=== PATIENT | female | born 1995 | race African-American/Black ===

== ENCOUNTER 2018-02-25 14:45 | Inpatient (IN) ==
[2018-02-25] MEDS ORDERED: SODIUM CHLORIDE 0.9% 1,000 ML IV STA (15:10)
[2018-02-25] MEDS ORDERED: PHENYTOIN INJ 1,000 MG in SODIUM CHLORIDE 0.9% 100 ML IV STA (15:10)
[2018-02-25] MEDS ORDERED: PANTOPRAZOLE 40 MG VIAL IV STA (15:12)
[2018-02-25] MEDS ORDERED: ONDANSETRON 4 MG/2 ML VIAL IV STA ×2 (15:12→18:22)
[2018-02-25] MEDS ORDERED: FOSPHENYTOIN 1,000 MG.PE in SODIUM CHLORIDE 0.9% 250 ML IV STA (15:28)
[2018-02-25] MEDS ORDERED: FOSPHENYTOIN 500 MG.PE/10 ML VIAL ONE ×2 (15:31→15:35)
[2018-02-25 16:51] LABS: Basophils % 0.3 % (0.0-0.8); Hematocrit 38.2 VOL% (35.7-47.0); Hemoglobin 13.1 GM/DL (12.0-16.0); Immature Granulocytes % 0.7 %; Immature Granulocytes Absolute 0.05 #; Lymphocytes # 0.5 10*3/uL (1.4-4.0); Lymphocytes % 6.6 % (21.3-54.2); Mean Corpuscular HGB Conc 34.3 GM/DL (32-36); Mean Corpuscular Hemoglobin 33 PG (27-34); Mean Corpuscular Volume 96.7 FL (87-102); Mean Platelet Volume 10.9 FL (9.6-12.0); Monocytes # 0.2 10*3/uL (0.11-0.8); Monocytes % 2.1 % (1.7-12.7); Neutrophils # 6.9 10*3/uL (1.4-7.4); Neutrophils % 90.3 % (38.7-73.9); Platelet Count 212 T/CUMM (130-400); Red Blood Count 3.95 MC/CUMM (3.8-5.5); Red Cell Distribution Width 12.5 % (9.3-17.3); White Blood Count 7.6 T/CUMM (4-12)
[2018-02-25 17:05] LABS: Barbiturates Screen,Urine Negative (Negative); Benzodiazepines Screen,Urine Negative (Negative); Cannabinoid Screen,Urine Positive (Negative); Opiate Screen,Urine Negative (Negative); Phencyclidine Screen,Urine Negative (Negative)
[2018-02-25] MEDS ORDERED: PROMETHAZINE 25 MG/1 ML VIAL IM STA (17:13)
[2018-02-25 17:15] LABS: Blood Urea Nitrogen 11 MG/DL (7-18); Calcium 8.7 MG/DL (8.5-10.1); Glucose 108 MG/DL (74-106); Osmolality,Calculated 285.8 MOS/KG (273-304); Potassium 3.8 MMOL/L (3.5-5.1); Sodium 144 MMOL/L (136-145)
[2018-02-25 17:59] LABS: Apearance,Urine CLEAR (Clear); Bacteria,Urine Occasional /HPF (Few); Bilirubin,Urine Negative (Negative); Blood, Urine Negative (Negative); Glucose,Urine (UA) Negative (Negative); Hyaline Casts,Urine 1 /LPF (0-3); Ketones,Urine 20 mg/dL (Negative); Mucus,Urine Occasional /LPF (Occasional); Nitrite,Urine Negative (Negative); Protein,Urine Negative; RBC,Urine 11 /HPF (0-4); Urine Color Yellow (Yellow); Urine Specific Gravity 1.015 (1.001-1.035); Urine Urobilinogen < 2.0 EU/DL (0.2-1.0); WBC,Urine 3 /HPF (0-6)
[2018-02-25] MEDS ORDERED: ALUM/MAG/SIMETH/LIDO VISC 1:1 30 ML BOTTLE PO STA (18:22)
[2018-02-25] MEDS ORDERED: cefTRIAXone 1,000 MG in SODIUM CHLORIDE 0.9% 100 ML IV STA (20:11)
[2018-02-25] MEDS ORDERED: SODIUM CHLORIDE 0.9% 1,000 ML IV ONE (20:29)
[2018-02-25] MEDS ORDERED: PHENYTOIN 100 MG/2 ML VIAL IV SCH (22:00)
[2018-02-25] MEDS: MORPHINE 4 MG/1 ML VIAL IV PRN (23:00)
[2018-02-25] MEDS: ONDANSETRON 4 MG/2 ML VIAL IV PRN (23:01)
[2018-02-25] MEDS: ENOXAPARIN 40 MG/0.4 ML SYRINGE SUBCUT SCH (23:02)
[2018-02-26] MEDS: DEXT 5% NACL 0.45% KCL 20 MEQ 20 MEQ/1,000 ML BAG IV SCH ×4 (01:40→22:10)
[2018-02-26] MEDS: ONDANSETRON 4 MG/2 ML VIAL IV PRN ×3 (04:22→23:04)
[2018-02-26 05:33] LABS: Basophils % 0.1 % (0.0-0.8); Hematocrit 33.7 VOL% (35.7-47.0); Hemoglobin 12.1 GM/DL (12.0-16.0); Immature Granulocytes % 0.5 %; Immature Granulocytes Absolute 0.05 #; Lymphocytes # 1.4 10*3/uL (1.4-4.0); Lymphocytes % 12.5 % (21.3-54.2); Mean Corpuscular HGB Conc 35.9 GM/DL (32-36); Mean Corpuscular Hemoglobin 33 PG (27-34); Mean Corpuscular Volume 92.8 FL (87-102); Mean Platelet Volume 11.8 FL (9.6-12.0); Monocytes # 0.4 10*3/uL (0.11-0.8); Monocytes % 3.4 % (1.7-12.7); Neutrophils # 9.1 10*3/uL (1.4-7.4); Neutrophils % 83.5 % (38.7-73.9); Platelet Count 205 T/CUMM (130-400); Red Blood Count 3.63 MC/CUMM (3.8-5.5); Red Cell Distribution Width 12.7 % (9.3-17.3); White Blood Count 10.9 T/CUMM (4-12)
[2018-02-26 06:07] LABS: Calcium 8.5 MG/DL (8.5-10.1); Osmolality,Calculated 284.1 MOS/KG (273-304); Potassium 3.7 MMOL/L (3.5-5.1)
[2018-02-26] MEDS: MORPHINE 4 MG/1 ML VIAL IV PRN ×4 (08:25→23:02)
[2018-02-26] MEDS: PHENYTOIN 100 MG/2 ML VIAL IV SCH ×2 (10:20→18:01)
[2018-02-26] MEDS: PANTOPRAZOLE 40 MG VIAL IV SCH (10:44)
[2018-02-26] MEDS: ENOXAPARIN 40 MG/0.4 ML SYRINGE SUBCUT SCH (21:02)
[2018-02-27] MEDS: PHENYTOIN 100 MG/2 ML VIAL IV SCH ×2 (01:10→09:40)
[2018-02-27] MEDS: MORPHINE 4 MG/1 ML VIAL IV PRN ×4 (05:12→20:41)
[2018-02-27] MEDS: ONDANSETRON 4 MG/2 ML VIAL IV PRN ×4 (05:15→20:44)
[2018-02-27] MEDS: DEXT 5% NACL 0.45% KCL 20 MEQ 20 MEQ/1,000 ML BAG IV SCH ×3 (05:17→14:00)
[2018-02-27] MEDS: PANTOPRAZOLE 40 MG VIAL IV SCH ×2 (08:39→20:38)
[2018-02-27] MEDS: PHENYTOIN 100 MG/4 ML UDCUP PO SCH ×3 (11:06→20:40)
[2018-02-28] MEDS: MORPHINE 4 MG/1 ML VIAL IV PRN ×2 (02:53→09:10)
[2018-02-28] MEDS: DEXT 5% NACL 0.45% KCL 20 MEQ 20 MEQ/1,000 ML BAG IV SCH ×3 (02:55→18:39)
[2018-02-28] MEDS: ONDANSETRON 4 MG/2 ML VIAL IV PRN (02:55)
[2018-02-28 03:06] LABS: Basophils % 0.6 % (0.0-0.8); Eosinophils # 0.1 10*3/uL (0.0-0.87); Eosinophils % 1.8 % (0.00-10.9); Hematocrit 34.4 VOL% (35.7-47.0); Hemoglobin 11.7 GM/DL (12.0-16.0); Immature Granulocytes % 0.2 %; Immature Granulocytes Absolute 0.01 #; Lymphocytes # 2.3 10*3/uL (1.4-4.0); Lymphocytes % 47.3 % (21.3-54.2); Mean Corpuscular Hemoglobin 33 PG (27-34); Mean Corpuscular Volume 95.6 FL (87-102); Mean Platelet Volume 11.3 FL (9.6-12.0); Monocytes # 0.4 10*3/uL (0.11-0.8); Monocytes % 7.3 % (1.7-12.7); Neutrophils # 2.1 10*3/uL (1.4-7.4); Neutrophils % 42.8 % (38.7-73.9); Platelet Count 182 T/CUMM (130-400); Red Cell Distribution Width 12.1 % (9.3-17.3); White Blood Count 4.9 T/CUMM (4-12)
[2018-02-28 03:37] LABS: Calcium 8.1 MG/DL (8.5-10.1); Osmolality,Calculated 275.4 MOS/KG (273-304)
[2018-02-28] MEDS: PHENYTOIN 100 MG/4 ML UDCUP PO SCH ×3 (08:53→21:22)
[2018-02-28] MEDS: PANTOPRAZOLE 40 MG VIAL IV SCH ×2 (08:54→21:22)
[2018-02-28] MEDS ORDERED: PROPOFOL 200 MG/20 ML VIAL IV ONE (11:22)
[2018-02-28] MEDS ORDERED: LIDOCAINE 1% 5 ML VIAL ONE (11:22)
[2018-02-28] MEDS: METOCLOPRAMIDE 10 MG/10 ML UDCUP PO SCH ×3 (12:20→21:22)
[2018-03-01] MEDS: DEXT 5% NACL 0.45% KCL 20 MEQ 20 MEQ/1,000 ML BAG IV SCH ×3 (02:40→14:04)
[2018-03-01] MEDS: MORPHINE 4 MG/1 ML VIAL IV PRN ×4 (02:47→22:31)
[2018-03-01 05:34] LABS: Basophils % 0.7 % (0.0-0.8); Eosinophils # 0.1 10*3/uL (0.0-0.87); Eosinophils % 2.7 % (0.00-10.9); Hematocrit 36.5 VOL% (35.7-47.0); Hemoglobin 12.8 GM/DL (12.0-16.0); Immature Granulocytes % 0.2 %; Immature Granulocytes Absolute 0.01 #; Lymphocytes # 1.8 10*3/uL (1.4-4.0); Lymphocytes % 41.2 % (21.3-54.2); Mean Corpuscular HGB Conc 35.1 GM/DL (32-36); Mean Corpuscular Hemoglobin 33 PG (27-34); Mean Corpuscular Volume 94.8 FL (87-102); Mean Platelet Volume 11.1 FL (9.6-12.0); Monocytes # 0.3 10*3/uL (0.11-0.8); Monocytes % 6.6 % (1.7-12.7); Neutrophils # 2.1 10*3/uL (1.4-7.4); Neutrophils % 48.6 % (38.7-73.9); Platelet Count 189 T/CUMM (130-400); Red Blood Count 3.85 MC/CUMM (3.8-5.5); Red Cell Distribution Width 11.9 % (9.3-17.3); White Blood Count 4.4 T/CUMM (4-12)
[2018-03-01 06:01] LABS: Calcium 8.5 MG/DL (8.5-10.1); Osmolality,Calculated 272.7 MOS/KG (273-304); Potassium 4.3 MMOL/L (3.5-5.1)
[2018-03-01] MEDS: METOCLOPRAMIDE 10 MG/10 ML UDCUP PO SCH ×4 (10:20→21:42)
[2018-03-01] MEDS: PANTOPRAZOLE 40 MG VIAL IV SCH ×2 (11:00→21:42)
[2018-03-01] MEDS: PHENYTOIN 100 MG/4 ML UDCUP PO SCH ×3 (11:00→21:42)
[2018-03-02] MEDS: MORPHINE 4 MG/1 ML VIAL IV PRN (06:53)
[2018-03-02] MEDS: PANTOPRAZOLE 40 MG VIAL IV SCH (09:28)
[2018-03-02] MEDS: METOCLOPRAMIDE 10 MG/10 ML UDCUP PO SCH (09:28)
[2018-03-02] MEDS: PHENYTOIN 100 MG/4 ML UDCUP PO SCH (09:29)
[2018-03-02 11:31] VITALS: BP 118/67
== END 2018-03-02 11:46 | disposition home or self-care (01) | DRG 391 ==
LOC: N.ED 14:45 → N.EDINP 14:45 → N.3E 21:50
PROVIDERS: ADMIT Internal Medicine; ATTEND Internal Medicine

== ENCOUNTER 2018-08-01 10:10 | Inpatient (IN) ==
[2018-08-01] MEDS ORDERED: ONDANSETRON 4 MG/2 ML VIAL IV STA (10:43)
[2018-08-01] MEDS ORDERED: SODIUM CHLORIDE 0.9% 1,000 ML IV STA ×2 (10:43→11:36)
[2018-08-01] MEDS ORDERED: PANTOPRAZOLE 40 MG VIAL IV STA (10:43)
[2018-08-01 12:05] LABS: Basophils % 0.3 % (0.0-0.8); Hematocrit 43.4 VOL% (35.7-47.0); Hemoglobin 14.8 GM/DL (12.0-16.0); Immature Granulocytes % 0.4 %; Immature Granulocytes Absolute 0.03 #; Lymphocytes # 0.9 10*3/uL (1.4-4.0); Lymphocytes % 13.5 % (21.3-54.2); Mean Corpuscular HGB Conc 34.1 GM/DL (32-36); Mean Corpuscular Hemoglobin 33 PG (27-34); Mean Corpuscular Volume 95.4 FL (87-102); Monocytes # 0.3 10*3/uL (0.11-0.8); Monocytes % 3.7 % (1.7-12.7); Neutrophils # 5.6 10*3/uL (1.4-7.4); Neutrophils % 82.1 % (38.7-73.9); Platelet Count 202 T/CUMM (130-400); Red Blood Count 4.55 MC/CUMM (3.8-5.5); Red Cell Distribution Width 12.4 % (9.3-17.3); White Blood Count 6.8 T/CUMM (4-12)
[2018-08-01 12:24] LABS: Albumin 4.2 G/DL (3.4-5.0); Bilirubin,Total 0.7 MG/DL (0.2-1.0); Calcium 8.8 MG/DL (8.5-10.1); Lactic Acid 1.4 MMOL/L (0.4-2.0); Osmolality,Calculated 280.4 MOS/KG (273-304); Potassium 3.2 MMOL/L (3.5-5.1); Total Protein 8.1 G/DL (6.4-8.3)
[2018-08-01] MEDS ORDERED: ACETAMINOPHEN 325 MG TABLET PO PRN (14:29)
[2018-08-01 14:30] LABS: Amorphous Crystals,Urine Occasional /HPF (Few); Apearance,Urine CLOUDY (Clear); Bilirubin,Urine Negative (Negative); Blood, Urine Negative (Negative); Glucose,Urine (UA) Negative (Negative); Ketones,Urine 20 mg/dL (Negative); Mucus,Urine Few /LPF (Occasional); Nitrite,Urine Negative (Negative); Protein,Urine Negative; RBC,Urine 3 /HPF (0-4); Squamous Epithelial Cell,Urine Occasional /HPF (0-10); Urine Color Yellow (Yellow); Urine Specific Gravity 1.017 (1.001-1.035); WBC,Urine 4 /HPF (0-6)
[2018-08-01 14:59] LABS: Barbiturates Screen,Urine Negative (Negative); Benzodiazepines Screen,Urine Positive (Negative); Cannabinoid Screen,Urine Positive (Negative); Opiate Screen,Urine Positive (Negative); Phencyclidine Screen,Urine Negative (Negative)
[2018-08-01] MEDS ORDERED: MORPHINE 4 MG/1 ML VIAL IV PRN (16:22)
[2018-08-01] MEDS ORDERED: PROMETHAZINE INJ 25 MG in SODIUM CHLORIDE 0.9% 50 ML IV PRN (16:22)
[2018-08-01] MEDS ORDERED: INFLUENZA VIRUS VACCINE 0.5 ML SYRINGE IM ONE (16:30)
[2018-08-01] MEDS: SODIUM CHLORIDE 0.9% 1,000 ML IV SCH (16:31)
[2018-08-01] MEDS: ONDANSETRON 4 MG/2 ML VIAL IV PRN ×2 (16:31→20:13)
[2018-08-01] MEDS: KETOROLAC 15 MG/1 ML VIAL IV PRN ×2 (16:41→22:23)
[2018-08-01] MEDS: PHENYTOIN ER 100 MG CAPSULE PO SCH (20:12)
[2018-08-01] MEDS: PANTOPRAZOLE 40 MG VIAL IV SCH (20:15)
[2018-08-01] MEDS: PROMETHAZINE INJ 12.5 MG in SODIUM CHLORIDE 0.9% 50 ML IV PRN (22:25)
[2018-08-02] MEDS: SODIUM CHLORIDE 0.9% 1,000 ML IV SCH ×2 (01:06→08:30)
[2018-08-02] MEDS: ONDANSETRON 4 MG/2 ML VIAL IV PRN ×2 (01:13→16:25)
[2018-08-02 03:12] LABS: Basophils % 0.2 % (0.0-0.8); Eosinophils % 0.2 % (0.00-10.9); Hematocrit 38.1 VOL% (35.7-47.0); Immature Granulocytes % 0.3 %; Immature Granulocytes Absolute 0.03 #; Lymphocytes # 2.1 10*3/uL (1.4-4.0); Mean Corpuscular HGB Conc 34.1 GM/DL (32-36); Mean Corpuscular Hemoglobin 32 PG (27-34); Mean Corpuscular Volume 94.5 FL (87-102); Mean Platelet Volume 11.9 FL (9.6-12.0); Monocytes # 0.7 10*3/uL (0.11-0.8); Monocytes % 7.4 % (1.7-12.7); Neutrophils # 6.5 10*3/uL (1.4-7.4); Neutrophils % 69.9 % (38.7-73.9); Platelet Count 174 T/CUMM (130-400); Red Blood Count 4.03 MC/CUMM (3.8-5.5); Red Cell Distribution Width 12.1 % (9.3-17.3); White Blood Count 9.4 T/CUMM (4-12)
[2018-08-02 03:44] LABS: Potassium 3.1 MMOL/L (3.5-5.1); Risk Ratio 2.08; Thyroid Stimulating Hormone 1.43 uIU/ml (0.358-3.74); VLDL CHOLESTEROL 11.4 MG/DL
[2018-08-02] MEDS: KETOROLAC 15 MG/1 ML VIAL IV PRN ×3 (06:04→19:10)
[2018-08-02] MEDS: PROMETHAZINE INJ 12.5 MG in SODIUM CHLORIDE 0.9% 50 ML IV PRN ×2 (08:00→19:51)
[2018-08-02] MEDS ORDERED: MAGNESIUM SULF RIDER 4 GM in PREMIX 1 EACH IV PRN (08:21)
[2018-08-02] MEDS ORDERED: MAGNESIUM SULF RIDER 2 GM in PREMIX 1 EACH IV PRN (08:21)
[2018-08-02] MEDS: PHENYTOIN ER 100 MG CAPSULE PO SCH (09:20)
[2018-08-02] MEDS: METOCLOPRAMIDE 10 MG/2 ML VIAL IV SCH ×3 (09:32→21:02)
[2018-08-02] MEDS: PANTOPRAZOLE 40 MG VIAL IV SCH ×2 (09:36→21:05)
[2018-08-02] MEDS ORDERED: PHENOL 1.4% THROAT SPRAY 177 ML BOTTLE PO PRN (11:20)
[2018-08-02] MEDS: PHENYTOIN 100 MG/2 ML VIAL IV SCH ×2 (11:35→22:55)
[2018-08-02] MEDS: SODIUM CHLOR 0.9% KCL 20 MEQ 20 MEQ/1,000 ML BAG IV SCH (16:21)
[2018-08-03] MEDS: METOCLOPRAMIDE 10 MG/2 ML VIAL IV SCH ×4 (03:17→20:41)
[2018-08-03] MEDS: PROMETHAZINE INJ 12.5 MG in SODIUM CHLORIDE 0.9% 50 ML IV PRN (03:50)
[2018-08-03] MEDS: SODIUM CHLOR 0.9% KCL 20 MEQ 20 MEQ/1,000 ML BAG IV SCH ×2 (03:50→15:55)
[2018-08-03 06:42] LABS: Basophils % 0.5 % (0.0-0.8); Eosinophils % 0.7 % (0.00-10.9); Hematocrit 34.7 VOL% (35.7-47.0); Hemoglobin 11.9 GM/DL (12.0-16.0); Immature Granulocytes % 0.5 %; Immature Granulocytes Absolute 0.03 #; Lymphocytes # 2.1 10*3/uL (1.4-4.0); Lymphocytes % 38.4 % (21.3-54.2); Mean Corpuscular HGB Conc 34.3 GM/DL (32-36); Mean Corpuscular Hemoglobin 32 PG (27-34); Mean Platelet Volume 11.6 FL (9.6-12.0); Monocytes # 0.5 10*3/uL (0.11-0.8); Monocytes % 9.4 % (1.7-12.7); Neutrophils # 2.8 10*3/uL (1.4-7.4); Neutrophils % 50.5 % (38.7-73.9); Platelet Count 168 T/CUMM (130-400); Red Blood Count 3.69 MC/CUMM (3.8-5.5); Red Cell Distribution Width 11.9 % (9.3-17.3); White Blood Count 5.6 T/CUMM (4-12)
[2018-08-03] MEDS: PANTOPRAZOLE 40 MG VIAL IV SCH ×2 (08:37→20:41)
[2018-08-03] MEDS: PHENYTOIN 100 MG/2 ML VIAL IV SCH ×2 (11:31→22:29)
[2018-08-03] MEDS: ONDANSETRON 4 MG/2 ML VIAL IV PRN (19:13)
[2018-08-03] MEDS: KETOROLAC 15 MG/1 ML VIAL IV PRN (20:52)
[2018-08-04] MEDS: SODIUM CHLOR 0.9% KCL 20 MEQ 20 MEQ/1,000 ML BAG IV SCH ×2 (01:38→13:50)
[2018-08-04] MEDS: METOCLOPRAMIDE 10 MG/2 ML VIAL IV SCH ×4 (04:02→20:39)
[2018-08-04 04:38] LABS: Basophils % 0.5 % (0.0-0.8); Eosinophils # 0.1 10*3/uL (0.0-0.87); Eosinophils % 1.3 % (0.00-10.9); Hematocrit 33.5 VOL% (35.7-47.0); Hemoglobin 11.5 GM/DL (12.0-16.0); Immature Granulocytes % 0.2 %; Immature Granulocytes Absolute 0.01 #; Lymphocytes # 2.9 10*3/uL (1.4-4.0); Lymphocytes % 49.6 % (21.3-54.2); Mean Corpuscular HGB Conc 34.3 GM/DL (32-36); Mean Corpuscular Hemoglobin 32 PG (27-34); Mean Corpuscular Volume 93.1 FL (87-102); Mean Platelet Volume 11.3 FL (9.6-12.0); Monocytes # 0.5 10*3/uL (0.11-0.8); Monocytes % 7.8 % (1.7-12.7); Neutrophils # 2.4 10*3/uL (1.4-7.4); Neutrophils % 40.6 % (38.7-73.9); Platelet Count 163 T/CUMM (130-400); White Blood Count 5.9 T/CUMM (4-12)
[2018-08-04 04:50] LABS: Calcium 7.6 MG/DL (8.5-10.1); Osmolality,Calculated 272.7 MOS/KG (273-304); Potassium 3.7 MMOL/L (3.5-5.1)
[2018-08-04] MEDS: ONDANSETRON 4 MG/2 ML VIAL IV PRN ×2 (07:33→20:38)
[2018-08-04] MEDS: PANTOPRAZOLE 40 MG VIAL IV SCH ×2 (09:35→20:36)
[2018-08-04] MEDS: KETOROLAC 15 MG/1 ML VIAL IV PRN ×3 (11:52→23:26)
[2018-08-04] MEDS: PHENYTOIN 100 MG/2 ML VIAL IV SCH ×2 (11:56→23:28)
[2018-08-04] MEDS ORDERED: ceFAZolin 1,000 MG in SYRINGE 1 EACH IV ONE (15:18)
[2018-08-05] MEDS: METOCLOPRAMIDE 10 MG/2 ML VIAL IV SCH ×4 (03:46→20:44)
[2018-08-05] MEDS ORDERED: ceFAZolin 1,000 MG in SYRINGE 1 EACH IV ONE (06:00)
[2018-08-05] MEDS ORDERED: BUPIVACAINE MPF 0.25% /EPI 30 ML VIAL ONE (06:24)
[2018-08-05] MEDS ORDERED: TISSUE ADHESIVE 1 EACH APPLICATOR TOP ONE (06:24)
[2018-08-05] MEDS ORDERED: LIDOCAINE 1%/EPI INJ 20 ML VIAL ONE (06:24)
[2018-08-05] MEDS ORDERED: MEPERIDINE 25 MG/1 ML VIAL ONE ×2 (08:47→09:02)
[2018-08-05] MEDS: MEPERIDINE 50 MG/1 ML VIAL IV PRN ×2 (08:50→09:05)
[2018-08-05] MEDS: KETOROLAC 15 MG/1 ML VIAL IV PRN (10:06)
[2018-08-05] MEDS: PANTOPRAZOLE 40 MG VIAL IV SCH ×2 (10:10→20:46)
[2018-08-05] MEDS: SODIUM CHLOR 0.9% KCL 20 MEQ 20 MEQ/1,000 ML BAG IV SCH ×2 (10:11→20:50)
[2018-08-05] MEDS: MORPHINE 4 MG/1 ML VIAL IV PRN ×3 (12:13→20:41)
[2018-08-05] MEDS: PHENYTOIN 100 MG/2 ML VIAL IV SCH ×2 (12:15→22:36)
[2018-08-05] MEDS ORDERED: SEVOFLURANE 1 UNIT/15 MINUTE INH ONE (12:27)
[2018-08-05] MEDS ORDERED: PROPOFOL 200 MG/20 ML VIAL IV ONE (12:27)
[2018-08-05] MEDS ORDERED: KETOROLAC 30 MG/1 ML VIAL ONE (12:28)
[2018-08-05] MEDS ORDERED: GLYCOPYRROLATE 0.4 MG/2 ML VIAL ONE (12:28)
[2018-08-05] MEDS ORDERED: fentaNYL 100 MCG/2 ML VIAL ONE (12:28)
[2018-08-05] MEDS ORDERED: MIDAZOLAM 2 MG/2 ML VIAL ONE (12:28)
[2018-08-05] MEDS ORDERED: ONDANSETRON 4 MG/2 ML VIAL ONE (12:28)
[2018-08-05] MEDS ORDERED: NEOSTIGMINE 10 MG/10 ML VIAL ONE (12:29)
[2018-08-05] MEDS ORDERED: ROCURONIUM 100 MG/10 ML VIAL IV ONE (12:29)
[2018-08-05] MEDS: ONDANSETRON 4 MG/2 ML VIAL IV PRN (15:05)
[2018-08-05] MEDS: PROMETHAZINE INJ 12.5 MG in SODIUM CHLORIDE 0.9% 50 ML IV PRN (16:34)
[2018-08-06] MEDS: SODIUM CHLOR 0.9% KCL 20 MEQ 20 MEQ/1,000 ML BAG IV SCH ×2 (00:42→07:13)
[2018-08-06] MEDS: METOCLOPRAMIDE 10 MG/2 ML VIAL IV SCH ×2 (03:58→08:33)
[2018-08-06] MEDS: KETOROLAC 15 MG/1 ML VIAL IV PRN (07:09)
[2018-08-06] MEDS: PANTOPRAZOLE 40 MG VIAL IV SCH (08:31)
[2018-08-06 10:37] VITALS: BP 110/56
[2018-08-06] MEDS ORDERED: INFLUENZA VIRUS VACCINE 0.5 ML SYRINGE IM ONE (11:30)
== END 2018-08-06 12:05 | disposition home or self-care (01) | DRG 418 ==
LOC: N.ED 10:10 → SUATTDRO 14:28 → N.EDINP 14:28 → N.4E 16:11
PROVIDERS: ADMIT Internal Medicine
PROC: LAPCHOL (2018-08-05 07:22)